=== PATIENT | female | born 1995 | race Caucasian/White ===

== ENCOUNTER → 2017-11-18 | Outpatient (CLI) | payer BC ==
[~2017-11-18] MED LIST: DRV65 PO; SINCALIDE INJ 1.3 MCG in SODIUM CHLORIDE 0.9% 100ML 100 ML IV ONE
--- NOTE | 2017-11-18 12:55 | DIAGNOSTIC IMAGING REPORT ---
HEPATOBILIARY EF IMAGING CLINICAL HISTORY: 22 years-old Female presenting with NAUSEA/VOMITING. TECHNIQUE: Dynamic imaging of the gallbladder was initiated 65 minutes after administration of 5.3 mCi of technetium 99m Choletec. Imaging was obtained every 5 minutes over a span of 40 minutes. 1.3 mcg of sincalide was injected 5 minutes prior to the start of imaging. The gallbladder ejection fraction was calculated. COMPARISON: None. FINDINGS: Hepatobiliary scan demonstrates normal radiotracer uptake by the liver and normal excretion into the common duct and gallbladder. Expected radiotracer activity within small bowel indicates an unobstructed common duct. The gallbladder subsequently demonstrates normal contraction with decreased radiotracer activity. Gallbladder ejection fraction measures 98%. Reference range: Unequivocally normal: Greater than 50%. Unequivocally abnormal: Less than 35%. IMPRESSION: 1. Normal gallbladder ejection fraction. No evidence of chronic cholecystitis. Electronically signed by: To Carrillo M.D. 11/18/2017 12:54 PM Dictated Date/Time: 11/18/2017 12:53 PM
== END | disposition home or self-care (01) ==
LOC: C.NUCL 10:32
PROVIDERS: ATTEND Nurse Practitioner Family
DX: R11.2 Nausea with vomiting, unspecified (principal)

== ENCOUNTER 2022-03-19 08:14 | Inpatient (IN) ==
[2022-03-19] MEDS ORDERED: LIDOCAINE 1% LOCAL 20 ML VIAL INFIL PRN (11:02)
[2022-03-19] MEDS ORDERED: OXYTOCIN 30 UNITS/500 ML BAG IV PRN ×2 (11:02→11:24)
[2022-03-19] MEDS: LACTATED RINGER'S 1,000 ML IV PRN ×2 (11:15→14:55)
[2022-03-19 11:23] LABS: Hematocrit (blood only) 38.2 % (34.1-44.9); Hemoglobin 13.2 g/dl (12.0-16.0); Mean Corpuscular Hemoglobin 30.4 pg (25.0-34.0); Mean Corpuscular Hgb Conc 34.6 g/dL (32.0-36.0); Mean Platelet Volume 11.2 fL (9.4-12.3); Platelet Count 188 K/uL (130-400); RDW Coefficient of Variation 12.9 % (11.5-14.5); RDW Standard Deviation 41.5 fL (36.4-46.3); Red Blood Count 4.34 M/uL (3.93-5.22); White Blood Count 13.52 K/ul (4.8-10.8)
--- NOTE | 2022-03-19 11:27 | Labor Progress Brief Note ---
Date of Service March 19, 2022 Subjective at 40w2d for IOL due to postdates. Patient delayed from last night (was planned for Shel[place]) due to high census. Arrives without OB c/o. Assessment & Plan (1) Post term over 40 weeks: Plan: IOL: started with [place] placement today and will run low-dose pitocin until shelton falls out, then titrate pitocin to Q2m ctx. Epidural on request. GBS neg. RH pos. Admission and Anticipated Discharge Date Admission Date: March 19, 2022 Physical Exam Constitutional: WD/WN, vitals as above Eyes: PERRL, conjunctivae normal, anicteric sclerae ENMT: external ear and nose normal, oropharynx normal Neck: supple Respiratory: normal respiratory effort and able to speak in complete sentences; no respiratory distress Cardiovascular: Rate/Rhythm: regular rate and regular rhythm Extremities: + pedal edema Gastrointestinal (Abdomen): Gravid / AGA, nontender Musculoskeletal: no cyanosis or clubbing, extremities motor strength 5/5 Skin: no rashes, warm and dry Neurologic: patellar DTR's 2+ bilat, sensation intact Psychiatric: A+Ox3, euthymic affect Genitourinary: Speculum/Bimanual Exam: no vaginal lesions, no vaginal bleeding and uterus nontender OB Exam Abdomen: + vertex and + estimated weight (7) Manual OB Exam: + cervical dilation 1 cm, + cervical effacement 90%, + station -2 and + amniotic fluid (No leaking evident) OB Exam Monitor Tracing: + external FHT monitor used, + external uterine monitor used and + category I Lymphatic: no cervical or axillary lymphadenopathy Results & Data ([facility]) Vital Signs (Past 12 Hours) Vital Signs Temp Pulse Resp BP 03/19/22 08:44 98.4 F 90 18 121/81 Coding Level of Care Code None Diagnoses Post term over 40 weeks O48.0
[2022-03-19] MEDS ORDERED: SODIUM CHLORIDE 0.9% INJ 10 ML VIAL ONE (14:21)
[2022-03-19] MEDS ORDERED: fentaNYL citrate 100 MCG/2 ML VIAL ONE (14:21)
[2022-03-19] MEDS ORDERED: ePHEDrine sulfate 50 MG/ML AMP ONE (14:21)
[2022-03-19] MEDS ORDERED: LIDOCAINE 2%/EPINEPHRINE 1:200,000 20 ML SDV ONE (14:22)
[2022-03-19] MEDS ORDERED: BUPIVACAINE 0.25% 30 ML VIAL ONE (14:22)
[2022-03-19] MEDS ORDERED: fentaNYL 2MCG/ML ROPIVACAINE 1.25MG/ML 100 ML BAG EPI ONE (14:23)
[2022-03-19] MEDS ORDERED: fentaNYL 2MCG/ML ROPIVACAINE 1.25MG/ML 100 ML BAG EPI PRN (14:48)
[2022-03-19] MEDS ORDERED: NALBUPHINE HCL INJ 10 MG/ML AMP IV PRN (14:48)
[2022-03-19] MEDS ORDERED: diphenhydrAMINE 50 MG/ML VIAL IV PRN (14:48)
[2022-03-19] MEDS ORDERED: NALOXONE HCL 0.4 MG/1 ML VIAL/CARP IV PRN (14:48)
[2022-03-19] MEDS ORDERED: NALOXONE HCL 1 MG in SODIUM CHLORIDE 0.9% 1000ML 1,000 ML IV PRN (14:48)
[2022-03-19] MEDS ORDERED: ePHEDrine sulfate 50 MG/ML AMP IV PRN (14:48)
[2022-03-19] MEDS ORDERED: ONDANSETRON INJ 2 MG/ML 2 ML VIAL IV PRN (14:48)
--- NOTE | 2022-03-19 14:49 | Anesthesiology Consultation ---
Date of Service March 19, 2022 Assessment & Plan ASA ASA2 Proposed Anesthesia Anesthesia Type: Labor Epidural Risk / Benefits Reviewed With: PT / POA / Parent / Guardian, Accepts Plan and Informed Consent Obtained History Height/Weight Height: 5 ft 10 in Weight: 104.043 kg Allergies Allergy/AdvReac Type Severity Reaction Status Date / Time clarithromycin Allergy Unknown RASH Verified 03/18/22 13:21 amoxicillin [From Augmentin] AdvReac Nausea Verified 03/18/22 13:21 clavulanic acid AdvReac Nausea Verified 03/18/22 13:21 [From Augmentin] Medications Home Medications Medication Instructions Recorded Confirmed Last Taken prenat.vits,dianna,[id number] 1 tab PO DAILY 07/24/21 03/19/22 03/18/22 Active Medications Generic Name Dose Route Start Last Admin Trade Name Freq PRN Reason Stop Dose Admin Lactated Ringer's 1,000 mls @ 125 mls/hr 03/19/22 11:02 03/19/22 14:55 Lr IV 03/21/22 11:01 125 mls/hr .Q8H PRN Administration L&D Protocol Protocol Oxytocin 30 units in 500 mls @ 7 mls/hr 03/19/22 11:24 03/19/22 14:15 Pitocin IV 03/21/22 11:23 0.42 units/hr .Q24H PRN 7 mls/hr Labor Induction/Augmentation Titration Protocol 0.42 UNITS/HR Past Medical History Medical History (Updated 03/19/22 @ 11:26 by Flores Smart MD) Bronchitis Chronic migraine Depression Encounter for anatomic survey size inconsistent with dates Varicella vaccination Exercise / Class Metabolic Activity II 4-5 Yardwork/Stairs/Walk up hill Past Family History Family History Grandfather (Maternal) Diabetes Hypertension Grandmother (Maternal) Diabetes Hypertension Grandfather (Paternal) Diabetes Hypertension Grandmother (Paternal) Diabetes Hypertension Sister Preeclampsia Denies family history of Ovarian cancer Prostate cancer Breast cancer Lung cancer Cancer Past Surgical History Surgical History S/P cholecystectomy S/P wisdom tooth extraction Past Anesthesia History No Hx of Anesthesia Complications and No Family Hx of Anesthesia Complications History of PONV No Hx of PONV and No Hx of Motion Sickness Social History Smoking Status: Never smoker Hx Alcohol Use: No Hx Substance Use: No Review of Systems denies fever/cough/ colds/ chest pain/ SOB/ LORNA denies LORNA Physical Exam Vital Signs Last Vital Signs Temp 36.8 C 03/19/22 11:41 Pulse 77 03/19/22 15:19 Resp 16 03/19/22 11:41 BP 133/73 03/19/22 15:19 Pulse Ox 98 03/19/22 15:17 ENMT Mouth: no TMJ abnormality and no dentition abnormality Thyromental Distance: > or= 3.5 Finger Breadths Mallampati Class: II Neck neck extension not limited Respiratory normal respiratory effort; no respiratory distress Auscultation: lungs clear to auscultation bilaterally Cardiovascular Rate/Rhythm: regular rate and regular rhythm Neurologic moves all extremities Psychiatric Orientation: alert and oriented x 3 Testing Laboratory Results 03/19/22 11:17
--- NOTE | 2022-03-19 16:32 | Labor Progress Brief Note ---
Date of Service March 19, 2022 Subjective Comfortable with epidural. Assessment & Plan (1) Post term over 40 weeks: Plan: Continue IOL Admission and Anticipated Discharge Date Admission Date: March 19, 2022 Physical Exam Genitourinary: FHT Cat 1 [place] Q2-4 Pit @ 7 /-2 AROM clear Results & Data ([facility]) Vital Signs (Past 12 Hours) Vital Signs Temp Pulse Resp BP Pulse Ox 03/19/22 16:27 84 100 03/19/22 16:26 96 H 129/77 03/19/22 16:22 90 100 03/19/22 16:17 98 H 100 03/19/22 16:14 75 120/72 03/19/22 16:12 83 99 03/19/22 16:07 78 100 03/19/22 16:02 81 100 03/19/22 15:56 16 03/19/22 15:56 16 03/19/22 15:57 87 135/78 100 03/19/22 15:52 84 100 03/19/22 15:47 91 H 100 03/19/22 15:34 16 03/19/22 15:34 16 03/19/22 15:40 16 03/19/22 15:40 98.4 F 16 03/19/22 15:42 97 H 100 03/19/22 15:39 75 131/73 03/19/22 15:37 85 100 03/19/22 15:35 87 138/76 03/19/22 15:32 89 99 03/19/22 15:24 16 03/19/22 15:24 16 03/19/22 15:29 16 03/19/22 15:29 16 03/19/22 15:30 91 H 120/76 03/19/22 15:15 18 03/19/22 15:15 18 03/19/22 15:18 18 03/19/22 15:18 18 03/19/22 15:27 90 100 03/19/22 15:23 82 128/70 03/19/22 15:22 89 18 99 03/19/22 15:21 79 136/75 03/19/22 15:19 77 133/73 03/19/22 15:17 87 134/70 98 03/19/22 15:14 85 142/74 H 03/19/22 15:12 92 H 99 03/19/22 15:07 100 H 95 03/19/22 15:05 95 H 90 03/19/22 15:02 87 99 03/19/22 14:57 106 H 100 03/19/22 14:58 99 H 172/88 H 03/19/22 13:37 75 133/78 03/19/22 12:53 81 134/81 03/19/22 11:41 16 03/19/22 11:41 98.2 F 16 03/19/22 11:42 72 120/75 03/19/22 08:44 98.4 F 90 18 121/81 Coding Level of Care Code None Diagnoses Post term over 40 weeks O48.0
--- NOTE | 2022-03-19 20:00 | Labor Progress Brief Note ---
Date of Service March 19, 2022 Subjective Feeling pressure, shaky Assessment & Plan (1) Post term over 40 weeks: Plan: Patient approaching fully dilated, hopefully begin 2nd stage soon. Admission and Anticipated Discharge Date Admission Date: March 19, 2022 Physical Exam Genitourinary: 100/0 FHT Cat 1 [place] Q2-3 Pit @ 11 --> increasing to 13 Bloody show present Results & Data ([facility]) Vital Signs (Past 12 Hours) Vital Signs Temp Pulse Resp BP Pulse Ox 03/19/22 18:00 98.8 F 14 03/19/22 19:57 91 H 100 03/19/22 19:56 101 H 135/78 03/19/22 19:52 103 H 100 03/19/22 19:47 102 H 100 03/19/22 19:48 105 H 142/80 H 03/19/22 19:42 105 H 100 03/19/22 19:37 93 H 100 03/19/22 19:32 82 100 03/19/22 19:27 93 H 100 03/19/22 19:22 85 100 03/19/22 19:17 86 100 03/19/22 19:12 91 H 121/79 100 03/19/22 19:07 89 99 03/19/22 19:02 95 H 98 03/19/22 18:57 86 100 03/19/22 18:40 16 03/19/22 18:40 16 03/19/22 18:56 96 H 114/76 03/19/22 18:52 80 99 03/19/22 18:47 91 H 99 03/19/22 18:42 90 97 03/19/22 18:41 93 H 130/67 03/19/22 18:37 105 H 99 03/19/22 18:32 91 H 100 03/19/22 18:27 100 H 100 03/19/22 18:22 95 H 99 03/19/22 18:17 84 100 03/19/22 18:09 14 03/19/22 18:09 14 03/19/22 18:12 76 99 03/19/22 18:11 77 113/70 03/19/22 18:07 64 100 03/19/22 18:02 67 99 03/19/22 17:57 69 113/68 99 03/19/22 17:45 14 03/19/22 17:45 14 03/19/22 17:52 76 100 03/19/22 17:47 73 100 03/19/22 17:08 16 03/19/22 17:08 16 03/19/22 17:25 16 03/19/22 17:25 16 03/19/22 17:42 85 100 03/19/22 17:41 187 H 123/81 03/19/22 17:37 73 100 03/19/22 17:32 87 100 03/19/22 17:27 77 100 03/19/22 17:26 93 H 124/86 03/19/22 17:22 77 100 03/19/22 17:17 78 100 03/19/22 17:12 79 100 03/19/22 17:09 68 120/76 03/19/22 17:07 68 100 03/19/22 16:45 16 03/19/22 16:45 16 03/19/22 17:02 67 100 03/19/22 17:03 68 124/80 03/19/22 16:58 68 124/79 03/19/22 16:57 72 100 03/19/22 16:28 16 03/19/22 16:28 16 03/19/22 16:53 75 123/74 03/19/22 16:52 70 100 03/19/22 16:47 75 99 03/19/22 16:46 80 124/81 03/19/22 16:44 70 97/55 L 03/19/22 16:42 64 111/58 L 100 03/19/22 16:41 68 03/19/22 16:41 100/61 03/19/22 16:41 83 95/51 L 03/19/22 16:37 81 100 03/19/22 16:32 87 100 03/19/22 16:27 84 100 03/19/22 16:26 96 H 129/77 03/19/22 16:22 90 100 03/19/22 16:17 98 H 100 03/19/22 16:14 75 120/72 03/19/22 16:12 83 99 03/19/22 16:07 78 100 03/19/22 16:02 81 100 03/19/22 15:56 16 03/19/22 15:56 16 03/19/22 15:57 87 135/78 100 03/19/22 15:52 84 100 03/19/22 15:47 91 H 100 03/19/22 15:34 16 03/19/22 15:34 16 03/19/22 15:40 16 03/19/22 15:40 98.4 F 16 03/19/22 15:42 97 H 100 03/19/22 15:39 75 131/73 03/19/22 15:37 85 100 03/19/22 15:35 87 138/76 03/19/22 15:32 89 99 03/19/22 15:24 16 03/19/22 15:24 16 03/19/22 15:29 16 03/19/22 15:29 16 03/19/22 15:30 91 H 120/76 03/19/22 15:15 18 03/19/22 15:15 18 03/19/22 15:18 18 03/19/22 15:18 18 03/19/22 15:27 90 100 03/19/22 15:23 82 128/70 03/19/22 15:22 89 18 99 03/19/22 15:21 79 136/75 03/19/22 15:19 77 133/73 03/19/22 15:17 87 134/70 98 03/19/22 15:14 85 142/74 H 03/19/22 15:12 92 H 99 03/19/22 15:07 100 H 95 03/19/22 15:05 95 H 90 03/19/22 15:02 87 99 03/19/22 14:57 106 H 100 03/19/22 14:58 99 H 172/88 H 03/19/22 13:37 75 133/78 03/19/22 12:53 81 134/81 03/19/22 11:41 16 03/19/22 11:41 98.2 F 16 03/19/22 11:42 72 120/75 03/19/22 08:44 98.4 F 90 18 121/81 Coding Level of Care Code None Diagnoses Post term over 40 weeks O48.0
[2022-03-19] MEDS ORDERED: ACETAMINOPHEN 325 MG TAB PO PRN (22:13)
[2022-03-19] MEDS ORDERED: BENZOCAINE 20% AER SPR 82.5 GM CAN EXT PRN (22:13)
[2022-03-19] MEDS ORDERED: HYDROCORTISONE ACETATE 25 MG SUPP PR PRN (22:13)
[2022-03-19] MEDS ORDERED: oxyCODONE/ACETAMINOPHEN 5mg/325mg TAB PO PRN (22:13)
[2022-03-19] MEDS ORDERED: DIPHTHERIA/TETANUS/PERTUSSIS 0.5 ML SYR/VIAL IM ONE (22:13)
--- NOTE | 2022-03-19 22:14 | Delivery Summary ---
Vaginal Delivery Summary Date of Service March 19, 2022 Vaginal Delivery Summary DIAGNOSES: 1. Thomas intrauterine at 40w2d gestation. 2. Induction of labor. 3. Group B Streptococcus Neg. PROCEDURE: Spontaneous vaginal delivery without laceration. SURGEON: Flores Smart MD. CONTINUITY MANAGER: None. ESTIMATED BLOOD LOSS: 350 mL. COMPLICATIONS: None. PLACENTA: Spontaneous and intact with a 3-vessel cord. DISPOSITION: Stable to labor and delivery. DESCRIPTION: The patient pushed well and brought the head to in OA position. The infant's head was allowed to deliver with contraction force and no further active pushing, with the perineum protected during this time. There was no nuchal cord. The left shoulder was anterior. The shoulders and body delivered without any difficulty, and the was placed on the maternal abdomen. It was vigorous and moving all extremities, and making respiratory efforts. The cord was doubly clamped by the MD and then cut. The placenta delivered spontaneously and was noted to be intact and with a 3VC and marginal insertion. The cervix, vagina and perineum were examined and were found to be without defect requiring repair. The fundus was firm and lochia minimal immediately after delivery. [facility] [place] Vaginal Delivery Codes: 51280 global code for the antepartum, delivery, and post-
[2022-03-20] MEDS: IBUPROFEN 600 MG TAB PO PRN ×3 (00:05→21:18)
--- NOTE | 2022-03-20 00:17 | Anesthesiology Progress Note ---
Date of Service March 20, 2022 Anesthesia Post Procedure Vital Signs Vital Signs: Temp Pulse Resp BP Pulse Ox 03/19/22 18:00 37.1 C 14 03/19/22 23:56 96 H 03/19/22 23:56 119/65 03/19/22 23:41 92 H 03/19/22 23:41 121/73 03/19/22 23:26 18 03/19/22 23:26 18 03/19/22 23:26 100 H 03/19/22 23:26 129/76 03/19/22 23:11 93 H 03/19/22 23:11 120/67 03/19/22 22:56 93 H 03/19/22 22:56 120/70 03/19/22 22:41 95 H 03/19/22 22:41 135/88 03/19/22 22:26 96 H 03/19/22 22:26 133/83 03/19/22 22:11 103 H 139/81 03/19/22 21:57 115 H 117/60 03/19/22 21:47 120 H 98 03/19/22 21:46 115 H 82 L 03/19/22 21:42 115 H 145/72 H 87 L 03/19/22 21:41 111 H 92 03/19/22 21:37 112 H 90 03/19/22 21:32 94 H 98 03/19/22 21:30 111 H 91 03/19/22 21:27 98 H 133/65 97 03/19/22 21:22 106 H 98 03/19/22 21:17 109 H 100 03/19/22 21:12 112 H 137/65 99 03/19/22 21:07 108 H 99 03/19/22 21:02 102 H 100 03/19/22 20:57 100 03/19/22 20:57 111 H 03/19/22 20:57 90 126/63 03/19/22 20:52 87 99 03/19/22 20:47 91 H 99 03/19/22 20:42 93 H 120/85 99 03/19/22 20:37 97 H 100 03/19/22 20:30 20 03/19/22 20:30 37.0 C 20 03/19/22 20:32 97 H 99 03/19/22 20:27 100 H 100 03/19/22 20:26 100 H 135/79 03/19/22 20:22 110 H 100 03/19/22 20:17 111 H 100 03/19/22 20:12 99 H 142/83 H 100 03/19/22 20:07 98 H 100 03/19/22 20:02 106 H 100 03/19/22 19:57 91 H 100 03/19/22 19:56 101 H 135/78 03/19/22 19:52 103 H 100 03/19/22 19:47 102 H 100 03/19/22 19:48 105 H 142/80 H 03/19/22 19:42 105 H 100 03/19/22 19:37 93 H 100 03/19/22 19:32 82 100 03/19/22 19:27 93 H 100 03/19/22 19:22 85 100 03/19/22 19:17 86 100 03/19/22 19:12 91 H 121/79 100 03/19/22 19:07 89 99 03/19/22 19:02 95 H 98 03/19/22 18:57 86 100 03/19/22 18:40 16 03/19/22 18:40 16 03/19/22 18:56 96 H 114/76 03/19/22 18:52 80 99 03/19/22 18:47 91 H 99 03/19/22 18:42 90 97 03/19/22 18:41 93 H 130/67 03/19/22 18:37 105 H 99 03/19/22 18:32 91 H 100 03/19/22 18:27 100 H 100 03/19/22 18:22 95 H 99 03/19/22 18:17 84 100 03/19/22 18:09 14 03/19/22 18:09 14 03/19/22 18:12 76 99 03/19/22 18:11 77 113/70 03/19/22 18:07 64 100 03/19/22 18:02 67 99 03/19/22 17:57 69 113/68 99 03/19/22 17:45 14 03/19/22 17:45 14 03/19/22 17:52 76 100 03/19/22 17:47 73 100 03/19/22 17:08 16 03/19/22 17:08 16 03/19/22 17:25 16 03/19/22 17:25 16 03/19/22 17:42 85 100 03/19/22 17:41 187 H 123/81 03/19/22 17:37 73 100 03/19/22 17:32 87 100 03/19/22 17:27 77 100 03/19/22 17:26 93 H 124/86 03/19/22 17:22 77 100 03/19/22 17:17 78 100 03/19/22 17:12 79 100 03/19/22 17:09 68 120/76 03/19/22 17:07 68 100 03/19/22 16:45 16 03/19/22 16:45 16 03/19/22 17:02 67 100 03/19/22 17:03 68 124/80 03/19/22 16:58 68 124/79 03/19/22 16:57 72 100 03/19/22 16:28 16 03/19/22 16:28 16 03/19/22 16:53 75 123/74 03/19/22 16:52 70 100 03/19/22 16:47 75 99 03/19/22 16:46 80 124/81 03/19/22 16:44 70 97/55 L 03/19/22 16:42 64 111/58 L 100 03/19/22 16:41 68 03/19/22 16:41 100/61 03/19/22 16:41 83 95/51 L 03/19/22 16:37 81 100 03/19/22 16:32 87 100 03/19/22 16:27 84 100 03/19/22 16:26 96 H 129/77 03/19/22 16:22 90 100 03/19/22 16:17 98 H 100 03/19/22 16:14 75 120/72 03/19/22 16:12 83 99 03/19/22 16:07 78 100 03/19/22 16:02 81 100 03/19/22 15:56 16 03/19/22 15:56 16 03/19/22 15:57 87 135/78 100 03/19/22 15:52 84 100 03/19/22 15:47 91 H 100 03/19/22 15:34 16 03/19/22 15:34 16 03/19/22 15:40 16 03/19/22 15:40 36.9 C 16 03/19/22 15:42 97 H 100 03/19/22 15:39 75 131/73 03/19/22 15:37 85 100 03/19/22 15:35 87 138/76 03/19/22 15:32 89 99 03/19/22 15:24 16 03/19/22 15:24 16 03/19/22 15:29 16 03/19/22 15:29 16 03/19/22 15:30 91 H 120/76 03/19/22 15:15 18 03/19/22 15:15 18 03/19/22 15:18 18 03/19/22 15:18 18 03/19/22 15:27 90 100 03/19/22 15:23 82 128/70 03/19/22 15:22 89 18 99 03/19/22 15:21 79 136/75 03/19/22 15:19 77 133/73 03/19/22 15:17 87 134/70 98 03/19/22 15:14 85 142/74 H 03/19/22 15:12 92 H 99 03/19/22 15:07 100 H 95 03/19/22 15:05 95 H 90 03/19/22 15:02 87 99 03/19/22 14:57 106 H 100 03/19/22 14:58 99 H 172/88 H 03/19/22 13:37 75 133/78 03/19/22 12:53 81 134/81 03/19/22 11:41 16 03/19/22 11:41 36.8 C 16 03/19/22 11:42 72 120/75 03/19/22 08:44 36.9 C 90 18 121/81 Transfer of Care Handoff Completed per policy Notes Mental Status: alert / awake / arousable and participated in evaluation Patient Amnestic to Procedure: Yes Nausea / Vomiting: adequately controlled Pain: adequately controlled Airway Patency, RR, SpO2: stable & adequate BP & HR: stable & adequate Hydration State: stable & adequate Anesthetic Complications: no major complications apparent and Pt Satisfied with anesthetic care
--- NOTE | 2022-03-20 05:22 | Obstetrical Progress Note ---
Date of Service March 20, 2022 Assessment & Plan (1) Spontaneous vaginal delivery: (2) Post term over 40 weeks: Plan - Overall, patient is feeling well today - Patient has not yet eaten d/t lack of appetite, agreeable to attempt today - feeding going well without concern - Urinating and passing gas appropriately - Ambulating well in room - Pain controlled w/ occasional ibuprofen - Routine PP care progressing well - Hgb /03/20 - Will consider discharge as patient appetite progresses Admission and Anticipated Discharge Date Admission Date: March 19, 2022 Supervising Physician Co-Signing Physician Notes Resident Physician Supervision Note: I interviewed and examined the patient. Discussed with Dr. Booker and agree with findings and plan as documented in the note. Any exceptions or clarifications are listed here: [ ] Documented By: Flores Smart MD, FACOG Subjective Today 03/20: Patient is a 27 y/o female who is PPD #1 following delivery at 40w2d. Patient is feeling well today, considering going home. - Ambulation - well around room - Voiding/Bloom - independently without dysuria - Gas/Stool - passing gas, no bowel movement - Diet - has not eaten, no appetite, no nausea or emesis - Lochia - heavy bleeding, no clots, diminishing - Infant Feeding Type - breast feeding, no concerns - Pain Level - 2/10, occasional ibuprofen - Patient endorses labial/vaginal burning/discomfort, soothed with pericare Review of Systems - Denies fever, chills, sweats - Denies shortness of breath, difficulty breathing, chest pain, palpitations, chest pressure. - Denies breast pain. - Denies dysuria. - Denies headache or changes in vision. Physical Exam Physical Exam: General: Alert, oriented. No acute distress. Cardiac: RRR, normal S1/S2, no murmurs/rubs/gallops. Respiratory: Non-labored, CTAB, no wheezes/rales/rhonchi. Symmetric chest rise. Abdomen: Soft, nontender, nondistended. Bowel sounds present. Uterus: Uterine fundus firm, palpable 1 cm below umbilicus. Lower Extremities: No lower extremity edema or swelling. No deep calf pain. Jessie's negative bilaterally. Results & Data ([facility]) Vital Signs (Past 12 Hours) Vital Signs Temp Pulse Pulse Resp BP BP Pulse Ox 03/20/22 04:00 36.7 C 80 18 121/76 99 03/20/22 00:25 37.3 C 86 18 120/73 98 03/20/22 00:25 37.3 C 86 18 120/73 98 03/19/22 18:00 37.1 C 14 03/19/22 23:56 96 H 03/19/22 23:56 119/65 03/19/22 23:41 92 H 03/19/22 23:41 121/73 03/19/22 23:26 18 03/19/22 23:26 18 03/19/22 23:26 100 H 03/19/22 23:26 129/76 03/19/22 23:11 93 H 03/19/22 23:11 120/67 03/19/22 22:56 93 H 03/19/22 22:56 120/70 03/19/22 22:41 95 H 03/19/22 22:41 135/88 03/19/22 22:26 96 H 03/19/22 22:26 133/83 03/19/22 22:11 103 H 139/81 03/19/22 21:57 115 H 117/60 03/19/22 21:47 120 H 98 03/19/22 21:46 115 H 82 L 03/19/22 21:42 115 H 145/72 H 87 L 03/19/22 21:41 111 H 92 03/19/22 21:37 112 H 90 03/19/22 21:32 94 H 98 03/19/22 21:30 111 H 91 03/19/22 21:27 98 H 133/65 97 03/19/22 21:22 106 H 98 03/19/22 21:17 109 H 100 03/19/22 21:12 112 H 137/65 99 03/19/22 21:07 108 H 99 03/19/22 21:02 102 H 100 03/19/22 20:57 100 03/19/22 20:57 111 H 03/19/22 20:57 90 126/63 03/19/22 20:52 87 99 03/19/22 20:47 91 H 99 03/19/22 20:42 93 H 120/85 99 03/19/22 20:37 97 H 100 03/19/22 20:30 20 09/22/22 20:30 37.0 C 20 03/19/22 20:32 97 H 99 03/19/22 20:27 100 H 100 03/19/22 20:26 100 H 135/79 03/19/22 20:22 110 H 100 03/19/22 20:17 111 H 100 03/19/22 20:12 99 H 142/83 H 100 03/19/22 20:07 98 H 100 03/19/22 20:02 106 H 100 03/19/22 19:57 91 H 100 03/19/22 19:56 101 H 135/78 03/19/22 19:52 103 H 100 03/19/22 19:47 102 H 100 03/19/22 19:48 105 H 142/80 H 03/19/22 19:42 105 H 100 03/19/22 19:37 93 H 100 03/19/22 19:32 82 100 03/19/22 19:27 93 H 100 03/19/22 19:22 85 100 03/19/22 19:17 86 100 03/19/22 19:12 91 H 121/79 100 03/19/22 19:07 89 99 03/19/22 19:02 95 H 98 03/19/22 18:57 86 100 03/19/22 18:40 16 03/19/22 18:40 16 03/19/22 18:56 96 H 114/76 03/19/22 18:52 80 99 03/19/22 18:47 91 H 99 03/19/22 18:42 90 97 03/19/22 18:41 93 H 130/67 03/19/22 18:37 105 H 99 03/19/22 18:32 91 H 100 03/19/22 18:27 100 H 100 03/19/22 18:22 95 H 99 03/19/22 18:17 84 100 03/19/22 18:09 14 03/19/22 18:09 14 03/19/22 18:12 76 99 03/19/22 18:11 77 113/70 03/19/22 18:07 64 100 03/19/22 18:02 67 99 03/19/22 17:57 69 113/68 99 03/19/22 17:45 14 03/19/22 17:45 14 03/19/22 17:52 76 100 03/19/22 17:47 73 100 03/19/22 17:25 16 03/19/22 17:25 16 03/19/22 17:42 85 100 03/19/22 17:41 187 H 123/81 03/19/22 17:37 73 100 03/19/22 17:32 87 100 03/19/22 17:27 77 100 03/19/22 17:26 93 H 124/86 03/19/22 17:22 77 100 O2 Del Method 03/20/22 04:00 Room Air 03/20/22 00:25 Room Air 03/20/22 00:25 03/19/22 18:00 03/19/22 23:56 03/19/22 23:56 03/19/22 23:41 03/19/22 23:41 03/19/22 23:26 03/19/22 23:26 03/19/22 23:26 03/19/22 23:26 03/19/22 23:11 03/19/22 23:11 03/19/22 22:56 03/19/22 22:56 03/19/22 22:41 03/19/22 22:41 03/19/22 22:26 03/19/22 22:26 03/19/22 22:11 03/19/22 21:57 03/19/22 21:47 03/19/22 21:46 03/19/22 21:42 03/19/22 21:41 03/19/22 21:37 03/19/22 21:32 03/19/22 21:30 03/19/22 21:27 03/19/22 21:22 03/19/22 21:17 03/19/22 21:12 03/19/22 21:07 03/19/22 21:02 03/19/22 20:57 03/19/22 20:57 03/19/22 20:57 03/19/22 20:52 03/19/22 20:47 03/19/22 20:42 03/19/22 20:37 03/19/22 20:30 03/19/22 20:30 03/19/22 20:32 03/19/22 20:27 03/19/22 20:26 03/19/22 20:22 03/19/22 20:17 03/19/22 20:12 03/19/22 20:07 03/19/22 20:02 03/19/22 19:57 03/19/22 19:56 03/19/22 19:52 03/19/22 19:47 03/19/22 19:48 03/19/22 19:42 03/19/22 19:37 03/19/22 19:32 03/19/22 19:27 03/19/22 19:22 03/19/22 19:17 03/19/22 19:12 03/19/22 19:07 03/19/22 19:02 03/19/22 18:57 03/19/22 18:40 03/19/22 18:40 03/19/22 18:56 03/19/22 18:52 03/19/22 18:47 03/19/22 18:42 03/19/22 18:41 03/19/22 18:37 03/19/22 18:32 03/19/22 18:27 03/19/22 18:22 03/19/22 18:17 03/19/22 18:09 03/19/22 18:09 03/19/22 18:12 03/19/22 18:11 03/19/22 18:07 03/19/22 18:02 03/19/22 17:57 03/19/22 17:45 03/19/22 17:45 03/19/22 17:52 03/19/22 17:47 03/19/22 17:25 03/19/22 17:25 03/19/22 17:42 03/19/22 17:41 03/19/22 17:37 03/19/22 17:32 03/19/22 17:27 03/19/22 17:26 03/19/22 17:22 Resident Activity Tracking Resident Involvement: Resident Care Provided Care Provided: OB Delivery
[2022-03-20 06:50] LABS: Hematocrit (blood only) 32.7 % (34.1-44.9); Hemoglobin 11.3 g/dl (12.0-16.0); Mean Corpuscular Hemoglobin 30.5 pg (25.0-34.0); Mean Corpuscular Hgb Conc 34.6 g/dL (32.0-36.0); Mean Corpuscular Volume 88.1 fL (80.0-100.0); Mean Platelet Volume 11.4 fL (9.4-12.3); Platelet Count 161 K/uL (130-400); RDW Coefficient of Variation 12.9 % (11.5-14.5); RDW Standard Deviation 41.3 fL (36.4-46.3); Red Blood Count 3.71 M/uL (3.93-5.22); White Blood Count 19.76 K/ul (4.8-10.8)
[2022-03-20] MEDS: PRENATAL VITAMIN 1 TAB PO SCH (08:43)
[2022-03-20] MEDS: DOCUSATE SODIUM 100 MG CAP PO SCH ×2 (08:43→21:19)
[2022-03-21 06:46] LABS: Hemoglobin 10.6 g/dl (12.0-16.0)
--- NOTE | 2022-03-21 06:56 | Obstetrical Progress Note ---
Date of Service March 21, 2022 Assessment & Plan (1) Spontaneous vaginal delivery: (2) Post term over 40 weeks: Plan - Overall, patient is feeling well today and wants to go home - Patient is eating well, regular diet, no nausea or emesis - breast feeding going well without concern, supplementing formula - Urinating and moving bowels appropriately - Ambulating well in room - Pain controlled w/ ibuprofen - Routine PP care progressing well - Anticipate discharge today Admission and Anticipated Discharge Date Admission Date: March 19, 2022 Supervising Physician Co-Signing Physician Notes Resident Physician Supervision Note: I was present with Dr. Booker during the history and exam. I discussed the case with the resident and agree with the findings and plan as documented in the note. Any exceptions or clarifications are listed here: [None] Documented By: Mario Joseph MD, FACOG Subjective Today 03/21: Patient is a 27 y/o female who is PPD #2 following delivery at 40w2d. Patient is feeling well today, wants to go home. - Ambulation - well around room - Voiding/Bloom - independently without dysuria - Gas/Stool - passing gas, had bowel movement, no concerns - Diet - eating regular diet, no nausea or emesis - Lochia - mod-heavy bleeding, no clots, diminishing - Feeding Type - breast feeding, formula supplementation, no concerns - Pain Level - 3/10, controlled with ibuprofen Review of Systems - Denies fever, chills, sweats - Denies shortness of breath, difficulty breathing, chest pain, palpitations, chest pressure. - Denies breast pain. - Denies dysuria. - Denies headache or changes in vision. Physical Exam Physical Exam: General: Alert, oriented. No acute distress. Cardiac: RRR, normal S1/S2, no murmurs/rubs/gallops. Respiratory: Non-labored, CTAB, no wheezes/rales/rhonchi. Symmetric chest rise. Abdomen: Soft, nontender, nondistended. Bowel sounds present. Uterus: Uterine fundus firm, palpable 2 cm below umbilicus. Lower Extremities: No lower extremity edema or swelling. No deep calf pain. Jessie's negative bilaterally. Results & Data ([facility]) Vital Signs (Past 12 Hours) Vital Signs Temp Pulse Resp BP Pulse Ox O2 Del Method 03/20/22 23:02 36.7 C 79 18 119/74 98 Room Air 03/20/22 20:00 36.8 C 73 18 119/78 98 Room Air Resident Activity Tracking Resident Involvement: Resident Care Provided Care Provided: OB Delivery
[2022-03-21] MEDS: DOCUSATE SODIUM 100 MG CAP PO SCH (08:32)
[2022-03-21] MEDS: PRENATAL VITAMIN 1 TAB PO SCH (08:33)
[2022-03-21] MEDS: IBUPROFEN 600 MG TAB PO PRN ×2 (08:33→17:52)
== END 2022-03-21 18:05 | disposition home or self-care (01) | DRG 807 ==
LOC: 4S1 08:14 → 4E2 03-20 00:53

== ENCOUNTER 2023-10-04 11:52 | Inpatient (IN) ==
[2023-10-04] MEDS ORDERED: OXYTOCIN 30 UNITS/NSS 30 UNITS/500 ML BAG IV PRN ×2 (12:11→20:14)
[2023-10-04] MEDS ORDERED: LIDOCAINE 1% LOCAL 20 ML VIAL INFIL PRN (12:11)
[2023-10-04 12:37] LABS: Hematocrit (blood only) 37.7 % (37.0-47.0); Hemoglobin 12.8 g/dl (12.0-16.0); Mean Corpuscular Hemoglobin 29.6 pg (25.0-34.0); Mean Corpuscular Volume 87.1 fL (80.0-100.0); Mean Platelet Volume 11.4 fL (9.4-12.4); Platelet Count 179 K/uL (130-400); RDW Coefficient of Variation 12.8 % (11.5-14.5); RDW Standard Deviation 40.2 fL (36.4-46.3); Red Blood Count 4.33 M/uL (4.20-5.40); White Blood Count 10.04 K/ul (4.8-10.8)
--- NOTE | 2023-10-04 12:56 | History & Physical Report ---
Date of Service October 04, 2023 Assessment & Plan (1) Supervision of normal intrauterine in multigravida: Plan: Mohsen is a 28-year-old G2, P1 currently at 40 weeks 1 day gestational age presents for induction of labor 1. Fetus: Category 1 tracing 2. Labor: Will start oxytocin per regular protocol. Will plan to AROM when appropriate 3. GBS negative 4. Vitals within normal limits (2) Post term : Admission and Anticipated Discharge Date Admission Date: October 04, 2023 History of Present Illness Primary Care Provider: JAMI Forde Mohsen is a 28-year-old G2, P1 currently at 40 weeks 1 day gestational age who presents for induction of labor. uncomplicated to date. OB Labs: Blood Type O Positive 02/16/23 Antibody Screen NEGATIVE 02/16/23 Hemoglobin 12.7 g/dl (12.0-16.0) 07/09/23 Hematocrit 37.1 % (37.0-47.0) 07/09/23 Mean Corpuscular Volume 85.1 fL (80.0-100.0) 02/16/23 Platelet Count 223 K/uL (130-400) 02/16/23 Rubella IgG Antibody Immune (Immune) 02/16/23 Rapid Plasma Reagin Nonreactive (Nonreactive) 02/16/23 Hepatitis B Surface Antigen Neg (Neg) 07/25/21 Hepatitis B Surface Antigen. NON-REACTIVE (NON-REACTIVE) 02/16/23 Hepatitis C Antibody Neg (Neg) 07/25/21 Hepatitis C Antibody (EIA) NON-REACTIVE (NON-REACTIVE) 02/16/23 HIV (1&2) Ab and P24 Ag, 4th Gener Neg (Neg) 07/25/21 HIV (1&2) Ag and Ab Confirmation NON-REACTIVE (NON-REACTIVE) 02/16/23 Glucose 1 Hour 50 gm Load 109 mg/dl (70-130) 07/09/23 OB Optional Labs: Chlamydia trachomatis RNA Not Detected (NotDetected) 02/16/23 Neisseria gonorrhoeae RNA Not Detected (NotDetected) 02/16/23 Thyroid Stimulating Hormone (TSH) 0.307 uIu/ml (0.300-4.500) 09/21/21 Allergies Allergy/AdvReac Type Severity Reaction Status Date / Time clarithromycin Allergy Unknown RASH Verified 10/04/23 12:19 amoxicillin [From Augmentin] AdvReac Nausea Verified 10/04/23 12:19 clavulanic acid AdvReac Nausea Verified 10/04/23 12:19 [From Augmentin] Home Medications Medication Instructions Recorded Confirmed Type prenat.vits,dianna,[id number] 1 tab PO DAILY 07/24/21 10/04/23 History digital therapeutic,DESHAUN device #1 ea 05/05/23 10/01/23 Rx riboflavin (vitamin B2) 400 mg 400 mg PO DAILY #30 tabs 05/05/23 10/04/23 Rx tablet sumatriptan 20 mg/actuation nasal 20 mg intranasal ONCE PRN migraine 05/05/23 10/01/23 Rx spray headache 30 days #6 ea metronidazole 0.75 % (37.5 mg/5 1 appful vaginal DAILY 5 days #70 07/23/23 10/04/23 Rx gram) vaginal gel grams ondansetron HCl 4 mg tablet 4 mg PO Q6H PRN nausea and 07/30/23 10/04/23 Rx vomiting #20 tabs Patient History Medical History (Updated 10/04/23 @ 13:03 by Estevan Austin MD) Varicella vaccination Depression Bronchitis Surgical History S/P wisdom tooth extraction S/P cholecystectomy Family History Grandfather (Maternal) Diabetes Hypertension Grandmother (Maternal) Diabetes Hypertension Myocardial infarction Grandfather (Paternal) Diabetes Hypertension Grandmother (Paternal) Diabetes Hypertension Sister Preeclampsia Denies family history of Ovarian cancer Prostate cancer Breast cancer Lung cancer Cancer Social History (Updated 02/09/23 @ 10:51 by Lesley Hanks) Smoking Status: Never smoker Do You Dip or Chew Tobacco: No; Hx Alcohol Use: No Hx Substance Use: No Preferred Language: Sami Communication Ability: Effective Store Lead Required: No Beliefs That Will Affect Care: None marital status: marital status details: Claudy (33) [phone] Current Living Situation: Spouse Current Living Situation Comment: Patient lives with spouse, daughter, 1 dog current occupational status: employed current occupation: [employer] How many Children do You have: 1 Feels Safe at Home: Yes Safety Concerns: Feels Safe At This Time Childhood Exposure to Second-Hand Smoke: No Dental Care, Regularly: Yes Physical Activity Frequency: Does not Exercise Seatbelt Use: always Sunscreen Use: Yes Gender Identity: Female Assistive Devices: Glasses Physical Exam Genitourinary: OB Exam Abdomen: + vertex Manual OB Exam: + cervical dilation (1.5), + cervical effacement 70% and + station -2 OB Exam Monitor Tracing: + external FHT monitor used, + external uterine monitor used, + category I and + normal FHT variability Results & Data Vital Signs (Past 12 Hours) Vital Signs Temp Pulse Resp BP 10/04/23 12:25 36.9 C 86 18 136/81 10/04/23 12:23 86 10/04/23 12:23 136/81 10/04/23 12:14 81 10/04/23 12:14 139/85 10/04/23 12:05 84 151/79 H Coding Level of Care Code None Diagnoses Supervision of normal intrauterine in multigravida in third trimester Z34.83 Trimester: third trimester Post-term , 40-42 weeks of gestation O48.0 Post-term type: 40-42 weeks gestation (1) Supervision of normal intrauterine in multigravida Trimester: third trimester Qualified Code(s): Z34.83 - Encounter for supervision of other normal , third trimester (2) Post term Post-term type: 40-42 weeks gestation Qualified Code(s): O48.0 - Post-term
[2023-10-04] MEDS: LACTATED RINGER'S 1,000 ML IV PRN (13:45)
[2023-10-04] MEDS: OXYTOCIN 30 UNITS/NSS 30 UNITS/500 ML BAG IV PRN (13:51)
[2023-10-04] MEDS ORDERED: fentaNYL citrate PF 100 MCG/2 ML VIAL EPI PRN (15:21)
[2023-10-04] MEDS ORDERED: SODIUM CHLORIDE 0.9% PF INJ 10 ML VIAL EPI PRN (15:21)
[2023-10-04] MEDS ORDERED: diphenhydrAMINE 50 MG/ML VIAL IV PRN (15:21)
[2023-10-04] MEDS ORDERED: NALOXONE HCL 0.4 MG/1 ML VIAL/CARP IV PRN (15:21)
[2023-10-04] MEDS ORDERED: ePHEDrine sulfate 50 MG/ML AMP IV PRN (15:21)
[2023-10-04] MEDS ORDERED: BUPIVACAINE 0.25% PF 30 ML VIAL EPI PRN (15:21)
[2023-10-04] MEDS ORDERED: NALBUPHINE HCL 5 MG in SYRINGE 0 ML IV PRN (15:21)
[2023-10-04] MEDS ORDERED: NALOXONE HCL 1 MG in SODIUM CHLORIDE 0.9% 1,000 ML IV PRN (15:21)
[2023-10-04] MEDS ORDERED: fentANYL 2 MCG/ML BUPIVacaine 0.125%-NSS 100ML BAG EPI PRN (15:21)
[2023-10-04] MEDS ORDERED: ROPIVACAINE 0.5% PF 5 MG/ML 20 ML VIAL EPI PRN (15:21)
[2023-10-04] MEDS ORDERED: LIDOCAINE 2% MPF LOCAL 5 ML VIAL EPI PRN (15:21)
--- NOTE | 2023-10-04 15:21 | Anesthesiology Consultation ---
Date of Service October 04, 2023 Assessment & Plan Chart Review Chart Review: Acceptable Risk for Labor Epidural Consults Requested none History Height/Weight Height: 5 ft 10 in Weight: 103.419 kg Allergies Allergy/AdvReac Type Severity Reaction Status Date / Time clarithromycin Allergy Unknown RASH Verified 10/04/23 12:19 amoxicillin [From Augmentin] AdvReac Nausea Verified 10/04/23 12:19 clavulanic acid AdvReac Nausea Verified 10/04/23 12:19 [From Augmentin] Medications Home Medications Medication Instructions Recorded Confirmed Last Taken prenat.vits,dianna,[id number] 1 tab PO DAILY 07/24/21 10/04/23 10/03/23 21:00 digital therapeutic,DESHAUN device #1 ea 05/05/23 10/01/23 Unknown riboflavin (vitamin B2) 400 mg 400 mg PO DAILY #30 tabs 05/05/23 10/04/23 Unknown tablet sumatriptan 20 mg/actuation nasal 20 mg intranasal ONCE PRN migraine 05/05/23 10/01/23 Unknown spray headache 30 days #6 ea metronidazole 0.75 % (37.5 mg/5 1 appful vaginal DAILY 5 days #70 07/23/23 10/04/23 Unknown gram) vaginal gel grams ondansetron HCl 4 mg tablet 4 mg PO Q6H PRN nausea and 07/30/23 10/04/23 Unknown vomiting #20 tabs Active Medications Generic Name Dose Route Start Last Admin Trade Name Freq PRN Reason Stop Dose Admin Lactated Ringer's 1,000 mls @ 125 mls/hr 10/04/23 12:11 10/04/23 15:07 Lr IV 10/06/23 12:10 999 mls/hr .Q8H PRN Infusion L&D Protocol Protocol Oxytocin 30 units in 500 mls @ 4 mls/hr 10/04/23 12:14 10/04/23 14:30 Pitocin 30 Units/Nss IV 10/06/23 12:13 0.24 units/hr .Q24H PRN 4 mls/hr Labor Induction/Augmentation Titration Protocol 0.24 UNITS/HR Past Medical History Medical History (Updated 10/04/23 @ 13:03 by Estevan Austin MD) Varicella vaccination Depression Bronchitis Past Family History Family History Grandfather (Maternal) Diabetes Hypertension Grandmother (Maternal) Diabetes Hypertension Myocardial infarction Grandfather (Paternal) Diabetes Hypertension Grandmother (Paternal) Diabetes Hypertension Sister Preeclampsia Denies family history of Ovarian cancer Prostate cancer Breast cancer Lung cancer Cancer Past Surgical History Surgical History S/P wisdom tooth extraction S/P cholecystectomy Social History Smoking Status: Never smoker Do You Dip or Chew Tobacco: No Hx Alcohol Use: No Hx Substance Use: No substance use type: does not use Physical Exam Vital Signs Last Vital Signs Temp 36.9 C 10/04/23 13:51 Pulse 70 10/04/23 13:52 Resp 18 10/04/23 13:51 BP 131/87 10/04/23 13:52 Genitourinary OB Exam Abdomen: + vertex Manual OB Exam: + cervical dilation (1.5), + cervical effacement + 70% and + station + -2 OB Exam Monitor Tracing: + external FHT monitor used, + external uterine monitor used, + category I and + normal FHT variability Testing Laboratory Results 10/04/23 12:20
[2023-10-04] MEDS: fentANYL 2 MCG/ML BUPIVacaine 0.125%-NSS 100ML BAG ONE (16:04)
[2023-10-04] MEDS: LIDOCAINE 2%/EPINEPHRINE 1:200,000 20 ML PF ONE (16:04)
[2023-10-04] MEDS: BUPIVACAINE 0.25% PF 30 ML VIAL EPI STA (17:19)
[2023-10-04] MEDS: SODIUM CHLORIDE 0.9% PF INJ 10 ML VIAL ONE (17:20)
[2023-10-04] MEDS: fentaNYL citrate PF 100 MCG/2 ML VIAL ONE (17:20)
[2023-10-04] MEDS: BUPIVACAINE 0.25% PF 30 ML VIAL ONE (17:20)
[2023-10-04] MEDS: SODIUM CHLORIDE 0.9% PF INJ 10 ML VIAL EPI STA (17:21)
[2023-10-04] MEDS: fentaNYL citrate PF 100 MCG/2 ML VIAL EPI STA (17:21)
[2023-10-04] MEDS: LIDOCAINE 2%/EPINEPHRINE 1:200,000 20 ML PF EPI STA (17:21)
[2023-10-04] MEDS: ACETAMINOPHEN 325 MG TAB PO PRN (18:42)
[2023-10-04] MEDS: ePHEDrine sulfate 50 MG/ML AMP ONE (19:57)
[2023-10-04] MEDS ORDERED: HYDROCORTISONE ACETATE 25 MG SUPP PR PRN (20:14)
[2023-10-04] MEDS ORDERED: bisacodyL 10 MG SUPP PR PRN (20:14)
--- NOTE | 2023-10-04 20:20 | Delivery Summary ---
Vaginal Delivery Summary Date of Service October 04, 2023 Vaginal Delivery Summary and 1st Degree LAC Progressed to 10 cm dilated 100% effaced +2 station pushed over intact perineum with epidural anesthesia and delivered a viable with weight and Apgars pending. Head delivered without difficulty followed by shoulders and body. was noted be vigorous soon after delivery and a 1 minute delayed cord clamping was initiated. Cord double clamped and cut. remained in maternal abdomen. Cord blood obtained. Attention was turned to live with placenta was delivered intact three-vessel cord gentle cord traction. Inspection of perineum vagina cervix there is noted to be a first-degree perineal laceration which was repaired with 3-0 Vicryl with continuous running stitch. Needle sponge and instrument counts were correct at the completion of the case. Estimated blood loss between 100- 200 mL with official measurements pending. No complications noted [facility] Vaginal Delivery Charge Delivery Type Details: and 1st Degree LAC
--- NOTE | 2023-10-04 20:44 | Anesthesia Procedure Note ---
Date of Service October 04, 2023 Anesthesia Post Epidural Note Vital Signs Vital Signs: Temp Pulse Resp BP Pulse Ox 36.9 C 82 18 133/89 98 10/04/23 18:31 10/04/23 20:37 10/04/23 20:22 10/04/23 20:37 10/04/23 19:46 Pain Intensity Perineal: Pain Intensity: 3 Notes Mental Status: alert / awake / arousable and participated in evaluation Nausea / Vomiting: adequately controlled Pain: adequately controlled Airway Patency, RR, SpO2: stable & adequate BP & HR: stable & adequate Hydration State: stable & adequate Neuraxial Anesthesia: was administered and sensory block is resolving Anesthetic Complications: no major complications apparent and Pt Satisfied with anesthetic care Epidural: Removed without complications and With tip intact
[2023-10-04] MEDS: BENZOCAINE 20% SPRY 85 APPLN/85 GM CAN EXT PRN (23:17)
[2023-10-04] MEDS: DOCUSATE SODIUM 100 MG CAP PO SCH (23:38)
[2023-10-04] MEDS: DIPHTHER/TETAN/PERTUS Vaccine (Tdap, Adol/Adult) 0.5mL IM ONE (23:38)
[2023-10-05] MEDS: IBUPROFEN 600 MG TAB PO PRN (02:27)
--- NOTE | 2023-10-05 07:30 | Obstetrical Progress Note ---
Date of Service <Ricardo Kendall DO - Last Filed: 10/05/23 07:30> October 05, 2023 Assessment & Plan <Ricardo Kendall DO - Last Filed: 10/05/23 07:30> (1) Encounter for assessment: Plan 28 y/o PPD#1: Eating well, voiding well, ambulating well Vitals reviewed, WNL Pain well controlled with Tylenol and Motrin Routine post care - OOB, ambulation, diet progression as tolerated Will have 6 week follow up with Dr. Austin <Estevan Austin MD - Last Filed: 10/06/23 09:02> (1) Encounter for assessment: Subjective <Ricardo Kendall DO - Last Filed: 10/05/23 07:30> Ambulation: ambulating normally Voiding: no voiding problems Passing Gas:: Yes Diet Tolerance:: regular diet Lochia:: Moderate Feeding Type:: breast feeding Pain well controlled with Tylenol and Motrin Review of Systems -Denies fever or chills -Denies dyspnea, chest pain, or palpitations -Denies dysuria -Denies headache or changes in vision Physical Exam <Ricardo Kendall DO - Last Filed: 10/05/23 07:30> General: Alert and oriented. No acute distress Cardiac: Regular rate and rhythm, no murmurs appreciated Respiratory: Lungs clear to auscultation bilaterally, No increased work of breathing Abdominal: Soft, non-tender, non-distended. Bowel sounds present. Uterus: Uterine fundus firm, palpable below umbilicus Extremities: No lower extremity edema, calves non-tender bilaterally Results & Data <Ricardo Kendall DO - Last Filed: 10/05/23 07:30> Vital Signs (Past 12 Hours) Vital Signs Temp Pulse Pulse Resp BP BP Pulse Ox 10/05/23 02:48 36.4 C L 66 18 113/70 98 10/04/23 22:30 36.6 C 72 18 133/81 97 10/04/23 21:52 18 10/04/23 21:52 18 10/04/23 21:52 81 10/04/23 21:52 110/67 10/04/23 21:37 73 10/04/23 21:37 110/64 10/04/23 21:22 18 10/04/23 21:22 18 10/04/23 21:22 80 10/04/23 21:22 111/77 10/04/23 21:07 85 10/04/23 21:07 107/68 10/04/23 20:52 18 10/04/23 20:52 18 10/04/23 20:52 76 10/04/23 20:52 121/76 10/04/23 20:37 18 10/04/23 20:37 18 10/04/23 20:37 82 10/04/23 20:37 133/89 10/04/23 20:22 18 10/04/23 20:22 18 10/04/23 20:22 78 10/04/23 20:22 129/82 10/04/23 20:07 96 H 10/04/23 20:07 135/81 10/04/23 20:07 18 10/04/23 20:07 18 10/04/23 19:52 18 10/04/23 19:52 18 10/04/23 19:52 96 H 10/04/23 19:52 132/68 10/04/23 19:46 98 10/04/23 19:46 87 10/04/23 19:41 96 10/04/23 19:41 85 10/04/23 19:40 92 10/04/23 19:40 82 10/04/23 19:36 100 10/04/23 19:36 105 H 10/04/23 19:34 90 10/04/23 19:34 104 H 10/04/23 19:31 99 10/04/23 19:31 107 H O2 Del Method 10/05/23 02:48 Room Air 10/04/23 22:30 Room Air 10/04/23 21:52 10/04/23 21:52 10/04/23 21:52 10/04/23 21:52 10/04/23 21:37 10/04/23 21:37 10/04/23 21:22 10/04/23 21:22 10/04/23 21:22 10/04/23 21:22 10/04/23 21:07 10/04/23 21:07 10/04/23 20:52 10/04/23 20:52 10/04/23 20:52 10/04/23 20:52 10/04/23 20:37 10/04/23 20:37 10/04/23 20:37 10/04/23 20:37 10/04/23 20:22 10/04/23 20:22 10/04/23 20:22 10/04/23 20:22 10/04/23 20:07 10/04/23 20:07 10/04/23 20:07 10/04/23 20:07 10/04/23 19:52 10/04/23 19:52 10/04/23 19:52 10/04/23 19:52 10/04/23 19:46 10/04/23 19:46 10/04/23 19:41 10/04/23 19:41 10/04/23 19:40 10/04/23 19:40 10/04/23 19:36 10/04/23 19:36 10/04/23 19:34 10/04/23 19:34 10/04/23 19:31 10/04/23 19:31 Supervising Physician <Estevan Austin MD - Last Filed: 10/06/23 09:02> Co-Signing Physician Notes Patient seen with resident and agree with the above findings and plan. Stable for discharge if preferred. Resident Activity Tracking <Ricardo Kendall DO - Last Filed: 10/05/23 07:30> Resident Involvement: Resident Care Provided Care Provided: OB Delivery
[2023-10-05] MEDS: PRENATAL VITAMIN 1 TAB PO SCH (08:56)
[2023-10-05] MEDS: FERROUS SULFATE 325 MG TAB PO SCH (08:56)
[2023-10-05] MEDS: ACETAMINOPHEN 325 MG TAB PO PRN (12:48)
[2023-10-05] MEDS ORDERED: bisacodyL 5 MG TABEC PO SCH (20:00)
== END 2023-10-05 21:00 | disposition home or self-care (01) | DRG 807 ==
LOC: 4S1 11:52 → 4E2 22:38
DX: Z88.0 Allergy status to penicillin; Z79.899 Other long term (current) drug therapy; O48.0 Post-term pregnancy; Z37.0 Single live birth; Z3A.40 40 weeks gestation of pregnancy; Z88.1 Allergy status to other antibiotic agents; O70.0 First degree perineal laceration during delivery